=== PATIENT | female | born 1985 | race Caucasian/White ===

== ENCOUNTER 2017-11-16 15:22 | Emergency (ER) | payer OTHER ==
[~2017-11-16] VITALS: Ht 154.9 cm; Wt 72.6 kg
[2017-11-16 15:31] VITALS: BP 144/89
[2017-11-16] MEDS ORDERED: IBUPROFEN 800800 M1 PO ×2 (15:34→15:45)
[2017-11-16] MEDS ORDERED: ZPAK PO (15:45)
== END 2017-11-16 15:57 | disposition home or self-care (01) ==
LOC: M.ERS 15:22
DX: J02.0 Streptococcal pharyngitis (principal); Z85.41 Personal history of malignant neoplasm of cervix uteri; Z90.710 Acquired absence of both cervix and uterus; Z88.5 Allergy status to narcotic agent

== ENCOUNTER 2018-02-23 18:17 | Emergency (ER) | payer OTHER ==
[~2018-02-23] VITALS: Ht 154.9 cm; Wt 66.2 kg
[~2018-02-23 18:17] MED LIST: IBUPROFEN 800800 M1 PO; ZPAK PO
[2018-02-23 18:42] LABS: URINE BILIRUBIN NEGATIVE (Negative); URINE BLOOD NEGATIVE (Negative); URINE CLARITY CLEAR; URINE COLOR YELLOW; URINE GLUCOSE-RANDOM NEGATIVE (Negative); URINE KETONES NEGATIVE (Negative); URINE LEUKOCYTES-REFLEX NEGATIVE (Negative); URINE NITRITE-REFLEX NEGATIVE (Negative); URINE PROTEIN NEGATIVE (Negative); URINE SPECIFIC GRAVITY 1.025 (1.005-1.030); URINE UROBILINOGEN 0.2 E.U./dl (0.2-1.0)
[2018-02-23 19:01] LABS: ABSOLUTE EOSINOPHILS 0.1 thou/uL (0.0-0.7); ABSOLUTE LYMPHOCYTES 2.4 thou/uL (0.8-5.3); ABSOLUTE MONOCYTES 0.6 thou/uL (0.0-1.2); ABSOLUTE NEUTROPHILS 3.8 thou/uL (1.6-8.1); BASOPHILS 0.7 %; EOSINOPHILS 1.2 %; HEMATOCRIT 41.8 % (37.0-47.0); HEMOGLOBIN 14.1 gm/dL (12.0-15.0); LYMPHOCYTES 34.5 %; MCH 30.8 pg (26.0-34.0); MCHC 33.8 g/dL (28.0-37.0); MCV 90.9 fL (80.0-100.0); MONOCYTES 8.2 %; MPV 7.1 fl. (7.2-11.1); NUCLEATED RBCS 0 /100WBC; PLATELET COUNT* 261 thou/uL (150-400); POLYS 55.4 %; RBC 4.59 mil/uL (4.20-5.00); RDW-CV 12.5 % (10.5-14.5); WBC 6.9 thou/uL (4.0-11.0)
[2018-02-23 19:07] LABS: CALCIUM 8.2 mg/dL (8.5-10.1); CREATININE 0.7 mg/dL (0.6-1.3); POTASSIUM 3.7 mmol/L (3.5-5.1)
[2018-02-23 19:12] LABS: ALBUMIN 3.9 g/dL (3.4-5.0); TOTAL BILIRUBIN 0.2 mg/dL (<0.1-1.0); TOTAL PROTEIN 7.2 g/dL (6.4-8.2)
[2018-02-23] MEDS ORDERED: FLAGYL500 MG PO (20:37)
[2018-02-23 22:20] VITALS: BP 121/79
== END 2018-02-23 22:21 | disposition home or self-care (01) ==
LOC: M.ERS 18:17
PROVIDERS: Nurse Practitioner Family
DX: N76.0 Acute vaginitis (principal); Z90.710 Acquired absence of both cervix and uterus; Z85.41 Personal history of malignant neoplasm of cervix uteri; Z90.49 Acquired absence of other specified parts of digestive tract; Z86.14 Personal history of Methicillin resistant Staphylococcus aureus infection; Z88.5 Allergy status to narcotic agent

== ENCOUNTER 2019-07-06 06:21 | Emergency (ER) | payer OTHER ==
[~2019-07-06] VITALS: Ht 157.5 cm; Wt 70.3 kg
[~2019-07-06 06:21] MED LIST changes: +FLAGYL500 MG PO
[2019-07-06 06:44] LABS: URINE BILIRUBIN NEGATIVE (Negative); URINE BLOOD NEGATIVE (Negative); URINE CLARITY CLEAR; URINE COLOR YELLOW; URINE GLUCOSE-RANDOM NEGATIVE (Negative); URINE KETONES NEGATIVE (Negative); URINE LEUKOCYTES-REFLEX NEGATIVE (Negative); URINE NITRITE-REFLEX NEGATIVE (Negative); URINE PROTEIN NEGATIVE (Negative); URINE SPECIFIC GRAVITY <= 1.005 (1.005-1.030); URINE UROBILINOGEN 0.2 E.U./dl (0.2-1.0)
[2019-07-06 06:54] LABS: ABSOLUTE EOSINOPHILS 0.1 thou/uL (0.0-0.7); ABSOLUTE LYMPHOCYTES 2.1 thou/uL (0.8-5.3); ABSOLUTE MONOCYTES 0.4 thou/uL (0.0-1.2); ABSOLUTE NEUTROPHILS 1.6 thou/uL (1.6-8.1); BASOPHILS 1.1 %; EOSINOPHILS 2.2 %; HEMATOCRIT 42.2 % (37.0-47.0); HEMOGLOBIN 14.7 gm/dL (12.0-15.0); LYMPHOCYTES 49.8 %; MCH 31.5 pg (26.0-34.0); MCHC 34.9 g/dL (28.0-37.0); MCV 90.2 fL (80.0-100.0); MONOCYTES 9.3 %; MPV 6.9 fl. (7.2-11.1); NUCLEATED RBCS 0 /100WBC; PLATELET COUNT* 266 thou/uL (150-400); POLYS 37.6 %; RBC 4.68 mil/uL (4.20-5.00); WBC 4.3 thou/uL (4.0-11.0)
[2019-07-06 07:08] LABS: CALCIUM 9.1 mg/dL (8.5-10.1); CREATININE 0.7 mg/dL (0.6-1.3); POTASSIUM 3.8 mmol/L (3.5-5.1)
[2019-07-06 07:13] LABS: ALBUMIN 3.9 g/dL (3.4-5.0); TOTAL BILIRUBIN 0.3 mg/dL (<0.1-1.0); TOTAL PROTEIN 7.2 g/dL (6.4-8.2)
[2019-07-06] MEDS ORDERED: IBUPROFEN 800800 M1 PO (07:36)
[2019-07-06] MEDS ORDERED: BACTRIM DS TAB1 EAC1 PO (07:36)
[2019-07-06 07:56] VITALS: BP 137/96
== END 2019-07-06 07:57 | disposition home or self-care (01) ==
LOC: M.ERS 06:21
PROVIDERS: Family Medicine
DX: L73.9 Follicular disorder, unspecified (principal); M79.651 Pain in right thigh; F17.210 Nicotine dependence, cigarettes, uncomplicated; Z88.5 Allergy status to narcotic agent; Z90.49 Acquired absence of other specified parts of digestive tract; Z98.890 Other specified postprocedural states; Z90.710 Acquired absence of both cervix and uterus

== ENCOUNTER 2020-03-12 13:23 | Emergency (ER) | payer OTHER ==
[~2020-03-12] VITALS: Ht 157.5 cm; Wt 72.6 kg
[~2020-03-12 13:23] MED LIST changes: +BACTRIM DS TAB1 EAC1 PO
[2020-03-12 14:04] LABS: URINE BILIRUBIN NEGATIVE (Negative); URINE BLOOD NEGATIVE (Negative); URINE CLARITY CLEAR; URINE COLOR YELLOW; URINE GLUCOSE-RANDOM NEGATIVE (Negative); URINE KETONES NEGATIVE (Negative); URINE LEUKOCYTES-REFLEX NEGATIVE (Negative); URINE NITRITE-REFLEX NEGATIVE (Negative); URINE PROTEIN NEGATIVE (Negative); URINE SPECIFIC GRAVITY >= 1.030 (1.005-1.030); URINE UROBILINOGEN 0.2 E.U./dl (0.2-1.0)
[2020-03-12 14:06] LABS: ABSOLUTE LYMPHOCYTES 1.6 thou/uL (0.8-5.3); ABSOLUTE MONOCYTES 0.3 thou/uL (0.0-1.2); ABSOLUTE NEUTROPHILS 4.9 thou/uL (1.6-8.1); BASOPHILS 0.5 %; EOSINOPHILS 0.2 %; HEMATOCRIT 42.2 % (37.0-47.0); HEMOGLOBIN 14.9 gm/dL (12.0-15.0); LYMPHOCYTES 23.1 %; MCH 31.7 pg (26.0-34.0); MCHC 35.4 g/dL (28.0-37.0); MCV 89.6 fL (80.0-100.0); MONOCYTES 4.6 %; MPV 6.6 fl. (7.2-11.1); NUCLEATED RBCS 0 /100WBC; PLATELET COUNT* 317 thou/uL (150-400); POLYS 71.6 %; RBC 4.71 mil/uL (4.20-5.00); RDW-CV 12.5 % (10.5-14.5); WBC 6.9 thou/uL (4.0-11.0)
[2020-03-12 14:11] LABS: CALCIUM 8.8 mg/dL (8.5-10.1); CREATININE 0.8 mg/dL (0.6-1.3); POTASSIUM 3.6 mmol/L (3.5-5.1)
[2020-03-12 14:15] LABS: ALBUMIN 4.5 g/dL (3.4-5.0); TOTAL BILIRUBIN 0.4 mg/dL (<0.1-1.0); TOTAL PROTEIN 8.1 g/dL (6.4-8.2)
[2020-03-12] MEDS ORDERED: ONDANSETRON ODT4 MG PO (14:36)
[2020-03-12] MEDS ORDERED: BUTALB-APAP-CA1 EACH PO (14:36)
[2020-03-12 15:10] VITALS: BP 114/74
== END 2020-03-12 15:11 | disposition home or self-care (01) ==
LOC: M.ERS 13:23
PROVIDERS: Physician Assistant
DX: R11.2 Nausea with vomiting, unspecified (principal); Z20.828 Contact with and (suspected) exposure to other viral communicable diseases; F17.210 Nicotine dependence, cigarettes, uncomplicated; Z90.49 Acquired absence of other specified parts of digestive tract; Z90.710 Acquired absence of both cervix and uterus; Z98.890 Other specified postprocedural states; Z88.5 Allergy status to narcotic agent

== ENCOUNTER 2020-05-02 13:06 | Emergency (ER) | payer OTHER ==
[~2020-05-02] VITALS: Ht 157.5 cm; Wt 72.6 kg
[~2020-05-02 13:06] MED LIST changes: +BUTALB-APAP-CA1 EACH PO; +ONDANSETRON ODT4 MG PO
[2020-05-02] MEDS ORDERED: MOBIC7.5 MG PO (13:18)
[2020-05-02 13:43] LABS: INFLUENZA A ANTIGEN Negative (Negative); INFLUENZA B ANTIGEN Negative (Negative)
[2020-05-02] MEDS ORDERED: VENTOLIN HFA 1818 GM INH (13:43)
[2020-05-02] MEDS ORDERED: ZPAK PO (13:43)
[2020-05-02] MEDS ORDERED: PREDNISONE 20 M20 MG PO (13:43)
[2020-05-02 13:57] VITALS: BP 138/79
== END 2020-05-02 13:57 | disposition home or self-care (01) ==
LOC: M.ERS 13:06
PROVIDERS: Nurse Practitioner Family
DX: U07.1 COVID-19 (principal); N80.9 Endometriosis, unspecified; F17.210 Nicotine dependence, cigarettes, uncomplicated; Z88.5 Allergy status to narcotic agent; Z98.890 Other specified postprocedural states; Z90.49 Acquired absence of other specified parts of digestive tract; Z90.710 Acquired absence of both cervix and uterus

== ENCOUNTER 2020-12-21 22:09 | Emergency (ER) | payer OTHER ==
[~2020-12-21] VITALS: Ht 157.5 cm; Wt 77.1 kg
[~2020-12-21 22:09] MED LIST changes: +MOBIC7.5 MG PO; +PREDNISONE 20 M20 MG PO; +VENTOLIN HFA 1818 GM INH
[2020-12-21] MEDS ORDERED: LIPITOR 20 MG T20 M1 PO (22:46)
[2020-12-22 02:45] LABS: ABSOLUTE BASOPHILS 0.1 thou/uL (0.0-0.2); ABSOLUTE EOSINOPHILS 0.1 thou/uL (0.0-0.7); ABSOLUTE LYMPHOCYTES 2.9 thou/uL (0.8-5.3); ABSOLUTE MONOCYTES 0.5 thou/uL (0.0-1.2); ABSOLUTE NEUTROPHILS 2.6 thou/uL (1.6-8.1); BASOPHILS 0.9 %; EOSINOPHILS 2.3 %; HEMATOCRIT 41.9 % (37.0-47.0); HEMOGLOBIN 14.5 gm/dL (12.0-15.0); LYMPHOCYTES 46.4 %; MCH 31.6 pg (26.0-34.0); MCHC 34.7 g/dL (28.0-37.0); MCV 91.2 fL (80.0-100.0); MONOCYTES 8.5 %; NUCLEATED RBCS 0 /100WBC; PLATELET COUNT* 289 thou/uL (150-400); POLYS 41.9 %; RBC 4.59 mil/uL (4.20-5.00); RDW-CV 12.1 % (10.5-14.5); WBC 6.3 thou/uL (4.0-11.0)
[2020-12-22 02:53] LABS: CALCIUM 9.3 mg/dL (8.5-10.1); CREATININE 0.8 mg/dL (0.6-1.3); POTASSIUM 3.9 mmol/L (3.5-5.1)
[2020-12-22] MEDS ORDERED: NORCO5 PO (03:09)
[2020-12-22] MEDS ORDERED: FLEXERIL PO (03:09)
[2020-12-22] MEDS ORDERED: MEDROLDOSEPACK PO (03:09)
[2020-12-22 04:45] VITALS: BP 140/88
== END 2020-12-22 04:45 | disposition home or self-care (01) ==
LOC: M.ERS 22:09
PROVIDERS: Emergency Medicine
DX: M54.12 Radiculopathy, cervical region (principal); Z88.5 Allergy status to narcotic agent; Z98.890 Other specified postprocedural states; Z90.49 Acquired absence of other specified parts of digestive tract; Z90.710 Acquired absence of both cervix and uterus

== ENCOUNTER 2021-05-26 11:46 | Emergency (ER) | payer BC, OTHER, MEDICAID ==
[~2021-05-26] VITALS: Ht 160 cm; Wt 72.6 kg
[~2021-05-26 11:46] MED LIST changes: +FLEXERIL PO; +LIPITOR 20 MG T20 M1 PO; +MEDROLDOSEPACK PO; +NORCO5 PO
[2021-05-26 12:14] LABS: ABSOLUTE BASOPHILS 0.1 thou/uL (0.0-0.2); ABSOLUTE EOSINOPHILS 0.1 thou/uL (0.0-0.7); ABSOLUTE LYMPHOCYTES 2.4 thou/uL (0.8-5.3); ABSOLUTE MONOCYTES 0.4 thou/uL (0.0-1.2); ABSOLUTE NEUTROPHILS 2.6 thou/uL (1.6-8.1); BASOPHILS 1.1 %; EOSINOPHILS 1.5 %; HEMATOCRIT 42.1 % (37.0-47.0); HEMOGLOBIN 14.6 gm/dL (12.0-15.0); LYMPHOCYTES 43.1 %; MCHC 34.6 g/dL (28.0-37.0); MCV 89.4 fL (80.0-100.0); MONOCYTES 6.9 %; MPV 7.3 fl. (7.2-11.1); NUCLEATED RBCS 0 /100WBC; PLATELET COUNT* 285 thou/uL (150-400); POLYS 47.4 %; RBC 4.71 mil/uL (4.20-5.00); RDW-CV 12.3 % (10.5-14.5); WBC 5.5 thou/uL (4.0-11.0)
[2021-05-26 12:26] LABS: CALCIUM 9.3 mg/dL (8.5-10.1); CREATININE 0.9 mg/dL (0.6-1.3); POTASSIUM 3.7 mmol/L (3.5-5.1)
[2021-05-26 12:31] LABS: ALBUMIN 4.1 g/dL (3.4-5.0); TOTAL BILIRUBIN 0.5 mg/dL (<0.1-1.0); TOTAL PROTEIN 7.7 g/dL (6.4-8.2)
[2021-05-26] MEDS ORDERED: MEDROLDOSEPACK PO (12:57)
[2021-05-26] MEDS ORDERED: NORFLEX100 MG PO (12:57)
[2021-05-26] MEDS ORDERED: TORADOL 10 MG T10 MG PO (12:57)
[2021-05-26] MEDS ORDERED: TRAMADOL 50 MG50 MG PO (12:57)
[2021-05-26 13:34] VITALS: BP 135/85
--- NOTE | 2021-05-27 11:07 | EKG ---
[place] [address] ELECTROCARDIOGRAM REPORT Name: ANSELMO STEINBERG Room: [facility]#: [id number] Admission: 05/26/21 Attend Phys: Discharge: 05/26/21 Date of : 87 Date of Service: 05/26/21 1149 Report #: [id number] THIS REPORT FOR: //name// [facility] ED Test Date: 2021-05-26 Test Time: 11:49:49 Pat Name: ANSELMO STEINBERG Department: Room: Gender: [place]: [place] : 1985 Requested By: Kiesha Kong Order Number: [id number] MD: Rolando Morales Measurements Intervals [place] Rate: 80 P: 43 PA: 133 QRS: -2 QRSD: 92 T: 20 QT: 382 QTc: 441 Interpretive Statements Sinus arrhythmia Ventricular premature complex Borderline T wave abnormalities Baseline wander in lead(s) V5 No previous ECG available for comparison Electronically Signed On 05-27-2021 11:07:25 REPAIRER SCREEN CRUSHER by Rolando Morales [email or web address] <ELECTRONICALLY SIGNED> By: Jeremie Morales MD, FAC 05/27/21 1107 1149 1149 Jeremie Morales MD, [facility] /EPI
== END 2021-05-26 13:36 | disposition home or self-care (01) ==
LOC: M.ERS 11:46
PROVIDERS: Physician Assistant
DX: R07.89 Other chest pain (principal); R10.9 Unspecified abdominal pain; R11.2 Nausea with vomiting, unspecified; Z90.49 Acquired absence of other specified parts of digestive tract; Z98.890 Other specified postprocedural states; Z79.899 Other long term (current) drug therapy; Z88.5 Allergy status to narcotic agent; Z87.891 Personal history of nicotine dependence

== ENCOUNTER 2021-07-02 14:00 | Emergency (ER) | payer BC, OTHER, MEDICAID ==
[~2021-07-02] VITALS: Ht 157.5 cm; Wt 70.8 kg
[~2021-07-02 14:00] MED LIST changes: +NORFLEX100 MG PO; +TORADOL 10 MG T10 MG PO; +TRAMADOL 50 MG50 MG PO
[2021-07-02 14:08] VITALS: BP 141/82
[2021-07-02] MEDS ORDERED: SUPER THERAVIT1 EACH PO (14:11)
[2021-07-02 14:51] LABS: INFLUENZA A ANTIGEN Negative (Negative); INFLUENZA B ANTIGEN Negative (Negative)
== END 2021-07-02 16:15 | disposition home or self-care (01) ==
LOC: M.ERS 14:00
PROVIDERS: Nurse Practitioner Family
DX: J06.9 Acute upper respiratory infection, unspecified (principal); Z20.822 Contact with and (suspected) exposure to COVID-19; Z98.890 Other specified postprocedural states; Z90.710 Acquired absence of both cervix and uterus; Z90.49 Acquired absence of other specified parts of digestive tract; Z79.899 Other long term (current) drug therapy; Z88.5 Allergy status to narcotic agent; Z87.891 Personal history of nicotine dependence

== ENCOUNTER 2021-08-03 13:47 | Emergency (ER) | payer BC, OTHER, MEDICAID ==
[~2021-08-03] VITALS: Ht 157.5 cm; Wt 72.6 kg
[~2021-08-03 13:47] MED LIST changes: +SUPER THERAVIT1 EACH PO
[2021-08-03] MEDS ORDERED: PROAIR HFA8.5 GM INH (14:02)
[2021-08-03] MEDS ORDERED: ADIPEX-P37.5 MG PO (14:02)
[2021-08-03 16:04] LABS: ABSOLUTE LYMPHOCYTES 1.6 thou/uL (0.8-5.3); ABSOLUTE MONOCYTES 0.4 thou/uL (0.0-1.2); ABSOLUTE NEUTROPHILS 5.9 thou/uL (1.6-8.1); BASOPHILS 0.3 %; EOSINOPHILS 0.1 %; HEMATOCRIT 44.1 % (37.0-47.0); HEMOGLOBIN 14.4 gm/dL (12.0-15.0); LYMPHOCYTES 20.2 %; MCH 30.9 pg (26.0-34.0); MCHC 32.7 g/dL (28.0-37.0); MCV 94.3 fL (80.0-100.0); MONOCYTES 5.6 %; MPV 8.1 fl. (7.2-11.1); NUCLEATED RBCS 0 /100WBC; PLATELET COUNT* 133 thou/uL (150-400); POLYS 73.8 %; RBC 4.68 mil/uL (4.20-5.00); RDW-CV 12.6 % (10.5-14.5); WBC 7.9 thou/uL (4.0-11.0)
[2021-08-03 16:15] LABS: CALCIUM 9.4 mg/dL (8.5-10.1); POTASSIUM 3.6 mmol/L (3.5-5.1)
[2021-08-03 16:25] LABS: ALBUMIN 4.7 g/dL (3.4-5.0); TOTAL BILIRUBIN 0.5 mg/dL (<0.1-1.0); TOTAL PROTEIN 7.7 g/dL (6.4-8.2)
[2021-08-03] MEDS ORDERED: FLEXERIL PO (18:39)
[2021-08-03] MEDS ORDERED: HYDROCODON-ACE1 EAC7 PO (18:39)
[2021-08-03 18:52] VITALS: BP 119/79
--- NOTE | 2021-08-05 13:11 | EKG ---
[place] [address] ELECTROCARDIOGRAM REPORT Name: ANSELMO STEINBERG Room: [facility]#: [id number] Admission: 08/03/21 Attend Phys: Discharge: 08/03/21 Date of : 87 Date of Service: 08/03/21 1354 Report #: [id number] THIS REPORT FOR: //name// [facility] ED Test Date: 2021-08-03 Test Time: 13:54:59 Pat Name: ANSELMO STEINBERG Department: Room: Gender: F Car Worker: TDS : 1985 Requested By: Ravin Pelayo Order Number: [id number] MD: Luis Loja Measurements Intervals [place] Rate: 91 P: 42 NE: 128 QRS: 20 QRSD: 91 T: 28 QT: 342 QTc: 421 Interpretive Statements Sinus rhythm Borderline T wave abnormalities Compared to ECG 05/26/2021 11:49:49 Sinus arrhythmia no longer present Ventricular premature complex(es) no longer present T-wave abnormality still present Electronically Signed On 08-05-2021 13:10:45 HISTORY TUTOR by Luis Loja [email or web address] <ELECTRONICALLY SIGNED> By: Luis Loja MD, FACC 08/05/21 1310 1354 1354 Luis Loja MD, [facility] /EPI
== END 2021-08-03 18:53 | disposition home or self-care (01) ==
LOC: M.ERS 13:47
PROVIDERS: Emergency Medicine Emergency Medical Services
DX: R07.89 Other chest pain (principal); M54.50 Low back pain, unspecified; Z90.49 Acquired absence of other specified parts of digestive tract; Z98.890 Other specified postprocedural states; Z79.51 Long term (current) use of inhaled steroids; Z88.5 Allergy status to narcotic agent; Z87.891 Personal history of nicotine dependence